=== PATIENT | female | born 1990 | race Two or more races ===

== ENCOUNTER 2018-05-08 13:53 | Emergency (ER) | payer BC ==
[2018-05-08 14:16] VITALS: BP 128/83
[2018-05-08] MEDS ORDERED: ALBUTEROL SULFATE HFA (90 MCG/PUFF) 8 GM MDI (1 MDI/ER DISP) IH ONE (16:19)
--- NOTE | 2018-05-08 16:25 | ER Document Report ---
HPI - HPI Patient complains to provider of: Cough and congestion Time Seen by Provider: 05/08/18 16:19 Pain Level: Denies Context: Patient is a 28-year-old female presents to the emergency department for 2 days of generalized cough and congestion. Patient is denying any fever. Patient states she is an asthma patient and ran out of her albuterol inhaler yesterday. States she just recently got insurance again and tried to get in with her [facility] provider today but was unable to. Patient states at this time she is not having any respiratory distress but she is worried that she does not have any more follow her albuterol because she knows how bad her asthma attacks. past medical history: Asthma Medications: Albuterol Allergies: None - REPRODUCTIVE LMP: Mirena Reproductive: DENIES: : - DERM Skin Color: Normal Past Medical History - General Information source: Patient - Social History Smoking Status: Never Smoker Family History: Reviewed & Not Pertinent Patient has suicidal ideation: No Patient has homicidal ideation: No Pulmonary Medical History: Reports: Hx Asthma Renal/ Medical History: Denies: Hx Peritoneal Dialysis Vertical Provider Document - CONSTITUTIONAL Agree With Documented VS: Yes Notes: GENERAL: Alert, interacts well. No acute distress. HEAD: Normocephalic, atraumatic. No frontal or maxillary sinus tenderness noted EYES: Pupils equal, round, and reactive to light. Extraocular movements intact. ENT: Oral mucosa moist, tongue midline. Nares patent, TM's intact, nonerythematous, nonbulging bilaterally. Pharynx within normal limits, no palatal petechiae or exudate noted NECK: Full range of motion. Supple. Trachea midline. No lymphadenopathy appreciated LUNGS: Clear to auscultation bilaterally, no wheezes, rales, or rhonchi. No respiratory distress. HEART: Regular rate and rhythm. No murmur ABDOMEN: Soft, non-tender. Non-distended. Bowel sounds present in all 4 quadrants. EXTREMITIES: Moves all 4 extremities spontaneously. No edema, normal radial and dorsalis pedis pulses bilaterally. No cyanosis. BACK: no cervical, thoracic, lumbar midline tenderness. No saddle anesthesia, normal distal neurovascular exam. NEUROLOGICAL: Alert and oriented x3. Normal speech. cranial nerves II through XII grossly intact. PSYCH: Normal affect, normal mood. SKIN: Warm, dry, normal turgor. No rashes or lesions noted. - INFECTION CONTROL TRAVEL OUTSIDE OF THE [place] IN LAST 30 DAYS: No Course - Re-evaluation Re-evalutation: 05/08/18 16:22 Patient's lung sounds are clear and equal in all [place], patient is in no respiratory distress with a respiratory rate of 18 and an SPO2 of 99% on room air. Discussed refilling her albuterol inhaler and using a spacer. Discussed need to follow-up with primary care provider as albuterol as a rescue inhaler and there are other medications that the patient should be placed on. Patient states she has an appointment with her primary care provider the middle of May. Again patient's lung sounds are clear and equal in all carl[place], I do not believe prednisone is warranted at this time. Discussed [id number] medications for patient's URI symptoms. Patient is stable for discharge - Vital Signs Vital signs: Temp Pulse Resp BP Pulse Ox 98.2 F 93 18 128/83 H 98 05/08/18 14:14 05/08/18 14:14 05/08/18 14:14 05/08/18 14:14 05/08/18 14:14 Discharge - Discharge Clinical Impression: Upper respiratory infection Qualifiers: URI type: unspecified viral URI Qualified Code(s): J06.9 - Acute upper respiratory infection, unspecified Condition: Stable Disposition: HOME, SELF-CARE Instructions: Upper Respiratory Illness ([facility]), Asthma ([facility]), Viral Syndrome ([facility]) Additional Instructions: As we discussed you have been seen and treated in the emergency department for an upper respiratory infection. At this point in time your lungs are clear and equal in all carl[place]. There is no need for an albuterol treatment or for steroids. Please make sure you are taking [id number] cough medication and nasal decongestants. Please only use albuterol as you feel needed. Please make sure you continue to follow-up with your primary care provider as albuterol is intended as a rescue medication not as an every day medication. Please return to the emergency room should you have any respiratory distress or any other concerning symptoms. Prescriptions: Albuterol Sulfate [Proair HFA Inhalation Aerosol 8.5 gm MDI] 2 puff IH Q4H PRN #1 mdi PRN Reason: Albuterol Sulfate [Ventolin 0.083% Neb 2.5 mg/3 mL Ampul] 1 vial NEB Q4 #60 vial Nebulizer [Nebulizer Machine] 1 each ASDIR PRN #1 kit PRN Reason: Forms: Return to Work
== END 2018-05-08 16:56 | disposition home or self-care (01) ==
LOC: ER 13:53
DX: J06.9 Acute upper respiratory infection, unspecified (principal); R68.89 Other general symptoms and signs; Z97.5 Presence of (intrauterine) contraceptive device
CPT/HCPCS: 99283; J3490

== ENCOUNTER 2020-01-24 09:43 | Emergency (ER) | payer BC ==
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
[2020-01-24 11:44] LABS: ABSOLUTE LYMPHOCYTES (AUTO) 1.2 10^3/uL (0.5-4.7); ABSOLUTE MONOCYTES (AUTO) 0.4 10^3/uL (0.1-1.4); ABSOLUTE NEUT (AUTO) 5.7 10^3/uL (1.7-8.2); BASOPHILS % (AUTO) 0.1 % (0-2); HEMATOCRIT 25.4 % (36.0-47.0); HEMOGLOBIN 8.6 g/dL (12.0-15.5); LYMPHOCYTES % (AUTO) 15.8 % (13-45); MEAN CORPUSCULAR HEMOGLOBIN 30.7 pg (27.0-33.4); MEAN CORPUSCULAR VOLUME 90 fl (80-97); PLATELET COUNT 300 10^3/uL (150-450); RED BLOOD COUNT 2.82 10^6/uL (3.72-5.28); SEGMENTED NEUTROPHILS % (AUTO) 78.1 % (42-78); TOTAL CELLS COUNTED % (AUTO) 100 %; WHITE BLOOD COUNT 7.3 10^3/uL (4.0-10.5)
[2020-01-24 12:04] LABS: ALBUMIN 3.9 g/dL (3.5-5.0); ALKALINE PHOSPHATASE 57 U/L (38-126); ANION GAP 9 (5-19); ASPARTATE AMINO TRANSFERASE 15 U/L (14-36); BILIRUBIN,DIRECT 0.3 mg/dL (0.0-0.4); BILIRUBIN,TOTAL 0.3 mg/dL (0.2-1.3); BLOOD UREA NITROGEN 8 mg/dL (7-20); CALCIUM 9.2 mg/dL (8.4-10.2); CARBON DIOXIDE 25 mmol/L (22-30); CHLORIDE 105 mmol/L (98-107); GLUCOSE 108 mg/dL (75-110); POTASSIUM 4.6 mmol/L (3.6-5.0); TOTAL PROTEIN 6.5 g/dL (6.3-8.2)
[2020-01-24] MEDS ORDERED: CEPHALEXIN 500 MG CAPSULE PO ONE (17:30)
[2020-01-24] MEDS ORDERED: ACETAMINOPHEN 325 MG TABLET PO ONE (17:31)
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
--- NOTE | 2020-01-24 18:53 | RADIOLOGY REPORT (SQ) ---
EXAM DESCRIPTION: VENOUS UNILATERAL LOWER IMAGES COMPLETED DATE/TIME: 01/24/2020 6:44 pm REASON FOR STUDY: RLE pain, swelling, nonambulatory x 1 wk COMPARISON: None. TECHNIQUE: Dynamic and static thomas scale and color images acquired of the right leg venous system. S elected spectral images acquired with additional compression and augmentation maneuvers. The contrala teral common femoral vein and saphenofemoral junction were also imaged. Images stored on PACS. LIMITATIONS: None. FINDINGS: COMMON FEMORAL: Normal phasicity, compression and augmentation. No visualized echogenic ma terial on thomas scale. No defects on color images. FEMORAL: Normal compression and augmentation. No visualized echogenic material on thomas scale. No defe cts on color images. POPLITEAL: Normal compression, augmentation. No visualized echogenic material on thomas scale. No defec ts on color images. CALF VESSELS: Normal compression, augmentation. No visualized echogenic material on thomas scale. No de fects on color images. GSV and SSV: Normal compression, augmentation. No visualized echogenic material on thomas scale. No def ects on color images. ANY DEEP VENOUS INSUFFICIENCY: Not evaluated. ANY EVIDENCE OF POPLITEAL CYST: No. OTHER: No other significant finding. CONTRALATERAL COMMON FEMORAL VEIN AND SAPHENOFEMORAL JUNCTION: Normal phasicity, compression and augmentation. No visualized echogenic material on thomas scale. No de fects on color images. IMPRESSION: NO EVIDENCE DVT OR SVT IN THE RIGHT LEG. TECHNICAL DOCUMENTATION: JOB ID: [id number] [employer]- All Rights Reserved Reading location - IP/workstation name: [email or web address]
[2020-01-24 19:37] VITALS: BP 112/55
== END 2020-01-24 19:25 | disposition home or self-care (01) ==
LOC: ER 09:43
DX: S81.811D Laceration without foreign body, right lower leg, subsequent encounter (principal); L03.115 Cellulitis of right lower limb; W26.0XXD Contact with knife, subsequent encounter; J45.909 Unspecified asthma, uncomplicated; F32.9 Major depressive disorder, single episode, unspecified; Z79.899 Other long term (current) drug therapy
CPT/HCPCS: 36415; 80053; 85025; 93971; 99285